=== PATIENT | female | born 2000 | race Caucasian/White ===

== ENCOUNTER 2023-08-24 10:02 | Emergency (ER) | payer SELFPAY ==
[2023-08-24] MEDS ORDERED: predniSONE 20 MG TAB ONE (10:29)
[2023-08-24] MEDS ORDERED: IPRATROPIUM BROM 0.5MG/2.5ML ONE (10:29)
[2023-08-24] MEDS ORDERED: ALBUTEROL 2.5 MG/3 ML NEB SOL ONE (10:29)
--- NOTE | 2023-08-24 11:04 | ER ---
Nurse's Notes [facility] Name: Lay Coronado Age: 22 yrs Sex: Female : 2000 Arrival Date: 08/24/2023 Time: 10:02 Bed 17 Private MD: Diagnosis: Asthma exacerbation Presentation: 08/23 10:22 Chief complaint: Patient states: "I woke up this morning with my lungs hurting when I mb9 take a deep breath. I took my inhaler but it didn't help. I'm currently taking Amoxicillin.". Coronavirus screen: Vaccine status: Patient reports being unvaccinated. Ebola Screen: No symptoms or risks identified at this time. Initial Sepsis Screen: Does the patient meet any 2 criteria? No. Patient's initial sepsis screen is negative. Does the patient have a suspected source of infection? No. Patient's initial sepsis screen is negative. Risk Assessment: Do you want to hurt yourself or someone else? Patient reports no desire to harm self or others. Onset of symptoms was August 24, 2023. 10:22 Method Of Arrival: Ambulatory mb9 10:22 Acuity: TORO 4 mb9 Triage Assessment: 10:26 General: Appears in no apparent distress. Behavior is calm, cooperative. Pain: Denies mb9 pain. EENT: No signs and/or symptoms were reported regarding the EENT system. Neuro: Johnson Agitation-Sedation Scale (RASS): 0 - Alert and Calm Level of Consciousness is awake, alert, obeys commands, Oriented to person, place, time, situation, Appropriate for age. Cardiovascular: Heart tones S1 S2 present Patient's skin is warm and dry. Respiratory: Reports shortness of breath Airway is patent Respiratory effort is even, unlabored, Respiratory pattern is regular, symmetrical, Breath sounds are clear bilaterally. Onset: The symptoms/episode began/occurred this morning, the patient has mild shortness of breath. GI: No signs and/or symptoms were reported involving the gastrointestinal system. : No signs and/or symptoms were reported regarding the genitourinary system. Derm: Skin is pink, warm \\T\\ dry. Musculoskeletal: Range of motion: intact in all extremities. 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 - Infectious Disease History:: Denies. - Social history:: Smoking status: Reported history of juuling and/or vaping. Screenin:26 [facility] ED Fall Risk Assessment (Adult) History of falling in the last 3 months, mb9 including since admission No falls in past 3 months (0 pts) Confusion or Disorientation No (0 pts) Intoxicated or Sedated No (0 pts) Impaired Gait No (0 pts) Mobility Assist Device Used No (0 pt) Altered Elimination No (0 pt) Score/Fall Risk Level 0 - 2 = Low Risk Oriented to surroundings, Maintained a safe environment, Educated pt \\T\\ family on fall prevention, incl call for assistance when getting out of bed. Abuse screen: Denies threats or abuse. Nutritional screening: No deficits noted. Tuberculosis screening: No symptoms or risk factors identified. Assessment: 10:27 Reassessment: see triage assessment. mb9 11:13 Reassessment: Patient and/or family updated on plan of care and expected duration. Pain mb9 level reassessed. Patient is alert, oriented x 3, equal unlabored respirations, skin warm/dry/pink. Patient states feeling better. Patient states symptoms have improved. Vital Signs: 10:22 BP 111 / 75; Pulse 80; Resp 18; Temp 98; Pulse Ox 100% on R/A; Weight 47.63 kg; Height mb9 5 ft. 1 in. ; Pain 0/10; 11:13 BP 109 / 83; Pulse 86; Resp 18; Pulse Ox 100% on R/A; mb9 10:22 Body Mass Index 19.84 (47.63 kg, 154.94 cm) mb9 10:22 Pain Scale: Adult mb9 ED Course: 10:05 Patient arrived in ED. im 10:08 Tong Long MD is Attending Physician. sp3 10:17 Goldie Gann RN is Primary Nurse. mb9 10:22 Arm band placed on. mb9 10:24 Triage completed. mb9 10:27 Placed in gown. Bed in low position. Call light in reach. Side rails up X 1. Provided mb9 Education on: press call light if needing anything. Client placed on continuous cardiac and pulse oximetry monitoring. NIBP monitoring applied. 10:54 CXR XRAY In Process Unspecified. EDMS 11:13 No provider procedures requiring assistance completed. Patient did not have IV access mb9 during this emergency room visit. Administered Medications: 10:35 Drug: DuoNeb Nebulize (3:1) (2.5 mg - 0.5 mg) 3 ml Nebulizer once Route: Nebulizer; mb9 11:13 Follow up: Response: No adverse reaction mb9 10:35 Drug: predniSONE PO 40 mg PO once Route: PO; mb9 11:13 Follow up: Response: No adverse reaction mb9 Medication: 10:27 VIS not applicable for this client. mb9 Outcome: 11:04 Discharge ordered by . sp3 11:13 Discharged to home ambulatory, with family, mb9 11:13 Condition: stable 11:13 Discharge instructions given to patient, family, Instructed on discharge instructions, follow up and referral plans. Demonstrated understanding of instructions, follow-up care, medications, Prescriptions given X 1, 11:14 Patient left the ED. mb9 Signatures: Dispatcher [employer] EDMS Tong Long MD MD sp3 Goldie Gann RN RN mb9 Hannah Olmos
--- NOTE | 2023-08-24 11:04 | EDPHYS ---
Physician Documentation [facility] Name: Lay Coronado Age: 22 yrs Sex: Female : 2000 Arrival Date: 08/24/2023 Time: 10:02 Bed 17 Private MD: ED Physician Tong Long HPI: 08/23 11:02 This 22 yrs old Female presents to ER via Ambulatory with complaints of Asthma sp3 Exacerbation, Shortness Of Breath. 11:02 22-year-old female with history of asthma presents with chief complaint shortness of sp3 breath and asthma exacerbation. Patient has been taking her home inhaler. She denies fever, chest pain, back pain, abdominal pain, sick contacts, travel history, prolonged immobilization, prior pneumonia, DVT or PE, or any other history. Remainder of ROS negative.. 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 - Infectious Disease History:: Denies. - Social history:: Smoking status: Reported history of juuling and/or vaping. ROS: 11:02 Constitutional: Negative for fever, chills, and weight loss, Eyes: Negative for injury, sp3 pain, redness, and discharge, Neck: Negative for injury, pain, and swelling, Cardiovascular: Negative for chest pain, palpitations, and edema, Abdomen/GI: Negative for abdominal pain, nausea, vomiting, diarrhea, and constipation, : Negative for injury, bleeding, discharge, and swelling, MS/Extremity: Negative for injury and deformity, Skin: Negative for injury, rash, and discoloration, Neuro: Negative for headache, weakness, numbness, tingling, and seizure, 11:02 All other systems are negative, Exam: 11:02 Constitutional: This is a well developed, well nourished patient who is awake, alert, sp3 and in no acute distress. Head/Face: Normocephalic, atraumatic. Eyes: Pupils equal round and reactive to light, extra-ocular motions intact. Lids and lashes normal. Conjunctiva and sclera are non-icteric and not injected. Cornea within normal limits. Periorbital areas with no swelling, redness, or edema. Neck: Trachea midline, no thyromegaly or masses palpated, and no cervical lymphadenopathy. Supple, full range of motion without nuchal rigidity, or vertebral point tenderness. No Meningismus. Chest/axilla: Normal chest wall appearance and motion. Nontender with no deformity. No lesions are appreciated. Cardiovascular: Regular rate and rhythm with a normal S1 and S2. No gallops, murmurs, or rubs. Normal PMI, no JVD. No pulse deficits. Abdomen/GI: Soft, non-tender, with normal bowel sounds. No distension or tympany. No guarding or rebound. No evidence of tenderness throughout. Back: No spinal tenderness. No costovertebral tenderness. Full range of motion. Skin: Warm, dry with normal turgor. Normal color with no rashes, no lesions, and no evidence of cellulitis. MS/ Extremity: Pulses equal, no cyanosis. Neurovascular intact. Full, normal range of motion. Neuro: Awake and alert, GCS 15, oriented to person, place, time, and situation. Cranial nerves II-XII grossly intact. Motor strength 5/5 in all extremities. Sensory grossly intact. Cerebellar exam normal. Normal gait. Psych: Awake, alert, with orientation to person, place and time. Behavior, mood, and affect are within normal limits. 11:02 Respiratory: Scattered wheeze only. 100% on room air. No work of breathing or accessory muscle use. Patient talking in full sentences comfortable in no acute distress., Vital Signs: 10:22 BP 111 / 75; Pulse 80; Resp 18; Temp 98; Pulse Ox 100% on R/A; Weight 47.63 kg; Height mb9 5 ft. 1 in. ; Pain 0/10; 11:13 BP 109 / 83; Pulse 86; Resp 18; Pulse Ox 100% on R/A; mb9 10:22 Body Mass Index 19.84 (47.63 kg, 154.94 cm) mb9 10:22 Pain Scale: Adult mb9 MDM: 10:23 Patient medically screened. sp3 11:03 Data reviewed: vital signs, nurses notes, radiologic studies. ED course: Will sp3 administer nebulizer and obtain chest x-ray. I am not highly suspicious for pneumonia or critical asthma. Clinically have ruled out sepsis, shock, PE. 40 mg prednisone p.o. in the ED and will discharge home on prednisone as well.. 08/23 10:23 Order name: CXR XRAY sp3 Administered Medications: 10:35 Drug: DuoNeb Nebulize (3:1) (2.5 mg - 0.5 mg) 3 ml Nebulizer once Route: Nebulizer; mb9 11:13 Follow up: Response: No adverse reaction mb9 10:35 Drug: predniSONE PO 40 mg PO once Route: PO; mb9 11:13 Follow up: Response: No adverse reaction mb9 Disposition Summary: 08/24/23 11:04 Discharge Ordered Notes: Location: Home sp3 Condition: Stable sp3 Diagnosis - Asthma exacerbation sp3 Followup: sp3 - With: Private Physician - When: Upon discharge from the Emergency Department - Reason: Continuance of care Discharge Instructions: - Discharge Summary Sheet sp3 - Asthma Attack sp3 Forms: - Medication Reconciliation Form sp3 - Antibiotic Education sp3 - Prescription Opioid Use sp3 - Patient Portal Instructions sp3 - Leadership Thank You Letter sp3 Prescriptions: - Prednisone 20 mg Oral Tablet - take 2 tablets ORAL route once daily for 5 days; 10 tablet; Refills: 0, Product sp3 Selection Permitted Signatures: Dispatcher [employer] Tong Gaitan MD MD sp3 Goldie Gann RN RN mb9
--- NOTE | 2023-08-24 11:25 | RAD REPORT ---
EXAM DESCRIPTION: RAD - Chest Single View - 08/24/2023 10:52 am CLINICAL HISTORY: asthma COMPARISON: No comparisons FINDINGS: Lines: None. Lungs: No evidence of edema or pneumonia. Hyperinflated lungs. Pleural: No significant pleural effusions or pneumothorax. Cardiac: The heart size is within normal limits. Mediastinum: Within normal limits. Bones: No acute fractures. Other: None IMPRESSION: No acute cardiopulmonary disease.
[2023-08-24 11:28] VITALS: BP 109/83; TEMP 98; O2SAT 100
== END 2023-08-24 11:14 | disposition home or self-care (01) ==
LOC: ER 10:02
DX: J45.901 Unspecified asthma with (acute) exacerbation (principal)
CPT/HCPCS: 71045; 94640; 99284; J7512; J7613; J7644